=== PATIENT | male | born 1955 | race Caucasian/White ===

== ENCOUNTER 2016-09-26 23:28 | Emergency (ER) | payer BC, OTHER ==
[2016-09-26 23:44] VITALS: RESP 16
[2016-09-27] MEDS ORDERED: DIPH,PERTUS(ACELL)TETVAC-LF 0.5 ML VIAL IM ONE (00:02)
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
[2016-09-27 00:42] VITALS: BP 128/70; PULSE 62; TEMP 97.5
== END 2016-09-27 00:41 | disposition home or self-care (01) ==
LOC: EC 23:28
DX: S01.81XA Laceration without foreign body of other part of head, initial encounter (principal); Z23 Encounter for immunization; W51.XXXA Accidental striking against or bumped into by another person, initial encounter
CPT/HCPCS: 12011; 90471; 90715; 99282

== ENCOUNTER 2016-12-15 08:48 | Emergency (ER) | payer BC, OTHER ==
[2016-12-15 08:52] VITALS: BP 134/82; PULSE 79; RESP 18; TEMP 97.1
--- NOTE | 2016-12-15 09:15 | ED ---
General Adult HPI - General Chief complaint: Skin/Abscess/Foreign Body Stated complaint: bee sting rt hand Time Seen by Provider: 12/15/16 08:56 Source: patient, RN notes reviewed Mode of arrival: ambulatory Limitations: no limitations - History of Present Illness Initial comments: 61-year-old male presents to the emergency department with a chief complaint of bee sting to the right hand. Patient states that this happened yesterday and today he woke up and his right hand was swollen and red. Patient states that he did have some itching to it as well. Patient was concerned. He should be seen. Patient states there is no pain. He did not treat this in anyway. Patient states that he has had no other symptoms at this time.Patient denies any recent fever, chills, shortness of breath, chest pain, back pain, abdominal pain, nausea vomiting, numbness or tingling, dysuria or hematuria, constipation or diarrhea, headaches or visual changes, or any other current symptoms. - Related Data Previous Rx's Medication Instructions Recorded predniSONE 50 mg PO DAILY #5 tab 12/15/16 Allergies Allergy/AdvReac Type Severity Reaction Status Date / Time No Known Allergies Allergy Verified 12/15/16 08:52 Review of Systems ROS Statement: Those systems with pertinent positive or pertinent negative responses have been documented in the HPI. ROS Other: All systems not noted in ROS Statement are negative. Past Medical History Past Medical History: No Reported History History of Any Multi-Drug Resistant Organisms: None Reported Past Surgical History: No Surgical Hx Reported Past Psychological History: No Psychological Hx Reported Smoking Status: Never smoker Past Alcohol Use History: None Reported Past Drug Use History: None Reported General Exam - General Exam Comments Initial Comments: General: The patient is awake and alert, in no distress, and does not appear acutely ill. Neck: The neck is supple, there is no tenderness. Cardiovascular: There is a regular rate and rhythm. Respiratory: respirations are non-labored Musculoskeletal: Sensation intact with 2+ pulses throughout right upper extremity. Frontal motion of right hand and right wrist. There does appear to be some swelling and redness to the first and second digit that extends into the right hand. No fluctuance no abscess noted. 5 out of 5 muscle strength testing. Neurological: CN II-XII intact, There are no obvious motor or sensory deficits. Coordination appears grossly intact. Speech is normal. Skin: Skin is warm and dry and no rashes or lesions are noted. Psychiatric: Normal mood and affect. Limitations: no limitations Course Vital Signs 12/15/16 08:49 Temperature 97.1 F L Pulse Rate 79 Respiratory 18 Rate Blood Pressure 134/82 O2 Sat by Pulse 99 Oximetry Medical Decision Making - Medical Decision Making 61-year-old male presents to the emergency department with a chief complaint of insect bite to the right hand with localized reaction. Patient had this occur yesterday. At this time there is no sign of infection. We will place the patient on steroids if this worsens.. This time I'll questions have been answered. He will be discharged home. Disposition Clinical Impression: Insect bite of right hand with local reaction Disposition: HOME SELF-CARE Condition: Stable Instructions: Insect Bite or Sting (ED) Additional Instructions: Please use medication as discussed. Please follow up with family doctor if symptoms have not improved over the next two days. Please return to the emergency room if your symptoms increase or worsen or for any other concerns. Please start the steroids if symptoms seem to worsen. Prescriptions: predniSONE 50 mg PO DAILY #5 tab Referrals: Breezy Hardy DO [Primary Care Provider] - 1-2 days Time of Disposition: 09:15
== END 2016-12-15 09:25 | disposition home or self-care (01) ==
LOC: EC 08:48
DX: S60.561A Insect bite (nonvenomous) of right hand, initial encounter (principal); W57.XXXA Bitten or stung by nonvenomous insect and other nonvenomous arthropods, initial encounter
CPT/HCPCS: 99282